=== PATIENT | female | born 1955 | race American Indian/Alaskan Native ===

== ENCOUNTER → 2017-12-30 16:29 | Outpatient (CLI) | payer MEDICAID, SELFPAY ==
--- NOTE | 2017-12-30 16:33 | DI.RAD.S_ITS ---
PROCEDURE: XR LUMBAR SPINE 2-3V INDICATIONS: SCIATIC NERVE DISORDER-FOOT DROP TECHNIQUE: 3 views of the lumbar spine were acquired. COMPARISON: [facility], , -SPINE 2-3 VIEWS, 02/08/2011, 17:49. FINDINGS: Bones: 5 [id number] vertebrae are present. There is normal bony alignment. No vertebral body compression fractures. No suspicious bony lesions. Endplate osteophytes present and there is mild lower lumbar spine facet joint arthropathy. Soft tissues: Overlying bowel gas pattern is normal. No suspicious soft tissue calcifications. Cholecystectomy clips. IMPRESSION: Endplate osteophytes indicating early mild multilevel disc degeneration and there is mild facet joint arthropathy. Dictated by: Orion Mckeon [facility] Interpreted: Mehran Evans MD on 12/30/2017 at 17:01 Approved by: Mehran Evans M.D. on 12/30/2017 at 21:41
== END ==
PROVIDERS: Family Provider Family Medicine; PCP Family Medicine; Visit Provider Family Medicine
DX: M21.379 Foot drop, unspecified foot (principal); M54.30 Sciatica, unspecified side
CPT/HCPCS: 72100